=== PATIENT | male | born 1950 | race Two or more races ===

== ENCOUNTER 2023-08-16 13:25 | Emergency (ER) | payer MEDICARE, OTHER ==
[~2023-08-16] VITALS: Ht 167.6 cm; Wt 72.9 kg
[2023-08-16 14:36] LABS: Urine Bacteria NONE SEEN /hpf (None Seen); Urine Blood 3+ /uL (Negative); Urine Budding Yeast MODERATE /hpf (None Seen); Urine Clarity HAZY (Clear); Urine Color Yellow (Yellow); Urine Mucus FEW (None Seen); Urine Protein, UAD 1+ (Negative); Urine Specific Gravity 1.023 (1.001-1.035); Urine Urobilinogen Normal (Negative); Urine WBC 542 /hpf (0 - 3); Urine WBC Clumps PRESENT /hpf (None Seen)
[2023-08-16 18:30] VITALS: BP 141/58; PULSE 76; RESP 16; O2SAT 97
[2023-08-16 18:47] VITALS: TEMP 100.8
[2023-08-16] MEDS: ACETAMINOPHEN 325 MG TAB PO ONE (18:47)
[2023-08-16] MEDS ORDERED: BACDST PO (18:52)
== END 2023-08-16 19:07 | disposition home or self-care (01) ==
LOC: ER 13:25
DX: N39.0 Urinary tract infection, site not specified (principal); Z88.8 Allergy status to other drugs, medicaments and biological substances
CPT/HCPCS: 81001

== ENCOUNTER 2024-06-01 04:35 | Inpatient (IN) | payer OTHER ==
[~2024-06-01] VITALS: Ht 167.6 cm; Wt 68.2 kg
[~2024-06-01 04:35] MED LIST: BACDST PO
--- NOTE | 2024-06-01 05:03 | ED.PDOC ---
HPI Comments A 74 year old male presents to the ED with a chief complaint of high blood pressure onset today. Patient states he woke up about 2 hours ago experiencing headache, blurry vision, dizziness he took BP at home and it was 217/110. Upon ED arrival, BP was 193/79. Patient took Tylenol around 02:00 for headache and slightly improved pain. Past medical history of HTN, HLD. Denies chest pain, shortness of breath, nausea, vomiting, diarrhea, constipation. No other symptoms or modifying factors present at this time. Chief Complaint: High Blood Pressure Time Seen by MD: 04:48 Primary Care Provider: CHUCKIE Reviewed Notes: Medications, Allergies Allergies: Coded Allergies: Aspirin (Verified Allergy, Severe, 08/16/23) Ibuprofen (Verified Allergy, Severe, 08/16/23) Home Meds Active Scripts Pantoprazole Sodium Sesquihydr (Protonix) 40 Mg Tab, 40 MG PO DAILY for 30 Days, #30 TAB 0 Refills Prov:MARGARITO CARD MD 06/05/24 Lisinopril (Lisinopril) 10 Mg Tab, 10 MG PO DAILY for 30 Days, #30 TAB 2 Refills Prov:MARGARITO CARD MD 06/05/24 Chlorthalidone (Chlorthalidone) 25 Mg Tab, 25 MG PO DAILY@BREAKFAST for 30 Days, #30 TAB 2 Refills Prov:MARGARITO CARD MD 06/05/24 Amlodipine Besylate (NORVASC TABLET) 5 Mg Tb, 5 MG PO DAILY for 30 Days, #30 TAB 2 Refills Prov:MARGARITO CARD MD 06/05/24 Sulfamethoxazole W/Trimethopri (Bactrim Ds Tablet) 1 Tab Tb, 1 TAB PO BID for 10 Days, #20 TAB Prov:MAYNOR BAIRES PAC 08/16/23 Reported Medications Omeprazole (Omeprazole Dr) 20 Mg Cap, 1 CAP PO BID 06/01/24 Atorvastatin Calcium (ATORVASTATIN CALCIUM) 10 Mg Tab, 1 TAB PO 06/01/24 Information Source: Patient Mode of Arrival: Ambulatory Severity: Moderate Timing: Hours Duration: Since onset Prehospital treatment: None Cardiac Risk Factors: Hyperlipidemia, HTN Vital Signs Vital Signs Date Time Temp Pulse Resp B/P (MAP) Pulse Ox O2 Delivery O2 Flow Rate FiO2 06/01/24 08:40 127/66 06/01/24 08:31 48 14 97 06/01/24 07:38 Room Air* 0 21 06/01/24 07:32 98.3 98.3 Physical Exam General: Awake, alert and oriented. No acute distress. Skin: Skin in warm, dry and intact without rashes or lesions. HEENT: The head is normocephalic and atraumatic. Conjunctivae are clear without exudates or hemorrhage. Sclera is non-icteric. Neck: Normal range of motion. No JVD. Cardiac: Regular rate Respiratory: No signs of respiratory distress. No Stridor. Neurological: The patient is awake, alert and oriented to person, place, and time with normal speech. Speech is clear. There is no facial asymmetry. Psychiatric: Appropriate mood and affect. Good judgement and insight. No visual or auditory hallucinations. No suicidal or homicidal ideation. Past Medical History PAST MEDICAL HISTORY: High Lipids, HTN, Denies Surgical History: Denies all surgeries Family History Family History: Reviewed,noncontributory to illness Social History Smoker: Non-Smoker Alcohol: Denies ETOH Use Drugs: Denies Drug Use Lives In: Home Was a procedure done? Was a procedure done?: No CP Differential Dx Differential Diagnosis: A-fib, A-Flutter, Angina, Anxiety / Panic Attack, Atrial Dysrhythmia, Electrolyte Disorder X-Ray, Labs, Meds, VS Vital Signs Date Time Temp Pulse Resp B/P (MAP) Pulse Ox O2 Delivery O2 Flow Rate FiO2 06/01/24 08:40 127/66 06/01/24 08:31 48 14 127/66 (86) 97 06/01/24 07:38 47 Room Air* 0 21 06/01/24 07:36 159/69 06/01/24 07:32 98.3 47 16 159/69 (99) 96 98.3 06/01/24 06:35 Room Air* 0 21 06/01/24 06:29 97.5 50 16 150/49 (82) 97 97.5 06/01/24 04:58 47 06/01/24 04:45 97.6 50 16 197/67 (110) 98 Lab Test 06/01/24 05:15 Range/Units White Blood Count 14.0 H 4.4-10.8 10^3/uL Red Blood Count 5.13 4.5-5.90 10^6/uL Hemoglobin 15.5 13.5-17.5 g/dL Hematocrit 46.0 41.0-53.0 % Mean Corpuscular Volume 89.7 80.0-100.0 fL Mean Corpuscular Hemoglobin 30.2 28.0-32.0 pg Mean Corpuscular Hemoglobin Concent 33.7 32.0-36.0 g/dL Red Cell Distribution Width 14.8 H 11.8-14.3 % Platelet Count 312 140-450 10^3/uL Mean Platelet Volume 9.0 6.9-10.8 fL Neutrophils (%) (Auto) 80.8 H 37.0-80.0 % Lymphocytes (%) (Auto) 9.5 L 10.0-50.0 % Monocytes (%) (Auto) 9.3 0.0-12.0 % Eosinophils (%) (Auto) 0.2 0.0-7.0 % Basophils (%) (Auto) 0.2 0.0-2.0 % Neutrophils # (Auto) 11.3 H 1.6-8.6 10 ^3/uL Lymphocytes # (Auto) 1.3 0.4-5.4 10 ^3/uL Monocytes # (Auto) 1.3 0-1.3 10 ^3/uL Eosinophils # (Auto) 0 0-0.8 10 ^3/uL Basophils # (Auto) 0 0-0.2 10 ^3/uL Nucleated Red Blood Cells 0.0 % Sodium Level 137 136-145 mmol/L Potassium Level 3.7 3.5-5.1 mmol/L Chloride Level 103 98-107 mmol/L Carbon Dioxide Level 28 20-31 mmol/L Anion Gap 6 5-15 Blood Urea Nitrogen 21 9-23 mg/dL Creatinine 0.97 0.700-1.30 mg/dL Glomerular Filtration Rate Calc 81 >90 mL/min BUN/Creatinine Ratio 21.6 H 10.0-20.0 Serum Glucose 111 H 74-106 mg/dL Calcium Level 9.7 8.7-10.4 mg/dL Total Bilirubin 0.7 0.2-1.0 mg/dL Aspartate Amino Transferase (AST) 26 13-40 U/L Alanine Aminotransferase (ALT) 54 H 7-40 U/L Alkaline Phosphatase 90 46-116 U/L Troponin I High Sensitivity 24 </=54 ng/L B-Type Natriuretic Peptide 64.35 0-100 pg/mL Total Protein 6.7 5.7-8.2 g/dL Albumin 4.4 3.2-4.8 g/dL [address] [address] Ph: [phone] DIAGNOSTIC IMAGING Diagnostic Imaging Report : [id number] Signed PATIENT: J LUIS EVANGELISTA ACCT: [id number] UNIT: [id number] : 1950 LOC: ER ROOM / BED: / AGE / SEX: 74 / M ADM STATUS: REG ER SERVICE 6 ORDERING PHYSICIAN: IVETTE DEL TORO MD PROCEDURE(s): CXR1 - CHEST XRAY 1 VIEW REASON: cp ORDER NUMBER(s): [id number], ACCESSION NUMBER(s): [id number] CHEST RADIOGRAPH Indication: cp Technique: Single frontal view of the chest was obtained Comparison: None FINDINGS: Lines and Tubes: None Lungs: No focal consolidation. Pleura: No effusion. No pneumothorax. Cardiomediastinal contours: Unremarkable Bones: No acute osseous abnormality. IMPRESSION: 1. No acute cardiopulmonary disease. ATED BY: JARET ALONSO MD DICTATED DATE/TIME: 06/01/24524 SIGNED BY: JAERT ALONSO MD SIGNED DATE/TIME: 06/01/24524 CC: Time of 1ST Reevaluation: 05:18 Reevaluation 1ST: Unchanged Patient Education/Counseling: Diagnosis, Treatment, Prognosis Family Education/Counseling: No Family Present Departure 1 Departure Time of Disposition: 07:28 Impression: Primary Impression: Hypertensive urgency Additional Impression: TIA (transient ischemic attack) Disposition: ADMITTED INPATIENT Admit to: Med Surg Condition: Guarded e-Prescriptions Pantoprazole Sodium Sesquihydr (Protonix) 40 Mg Tab 40 MG PO DAILY for 30 Days, #30 TAB 0 Refills Prov: MARGARITO CARD MD 06/05/24 Lisinopril (Lisinopril) 10 Mg Tab 10 MG PO DAILY for 30 Days, #30 TAB 2 Refills Prov: MARGARITO CARD MD 06/05/24 Chlorthalidone (Chlorthalidone) 25 Mg Tab 25 MG PO DAILY@BREAKFAST for 30 Days, #30 TAB 2 Refills Prov: MARGARITO CARD MD 06/05/24 Amlodipine Besylate (NORVASC TABLET) 5 Mg Tb 5 MG PO DAILY for 30 Days, #30 TAB 2 Refills Prov: MARGARITO CARD MD 06/05/24 Comments MRI Critical Care Note Critical Care Time?: No Stability Stability form required: No Heart Score Heart Score: Heart Score Response (Comments) Value History Slightly Suspicious 0 EKG Normal 0 Age >65 2 Risk Factors >3 or Hx ASHD 2 Troponin Normal limit 0 Total 4 I personally scribed for IVETTE DEL TORO MD ([email or web address]) on 06/01/24 at 05:03. Electronically submitted by Sasha Starks ([email or web address]). I personally scribed for IVETTE DEL TORO MD ([email or web address]) on 06/01/24 at 05:49. Electronically submitted by Sasha Starks ([email or web address]). IVETTE DEL TORO MD Jun 01, 2024 05:03 CHINMAY BOONE MD Jun 01, 2024 07:28
--- NOTE | 2024-06-01 05:28 | DVH ---
CHEST RADIOGRAPH Indication: cp Technique: Single frontal view of the chest was obtained Comparison: None FINDINGS: Lines and Tubes: None Lungs: No focal consolidation. Pleura: No effusion. No pneumothorax. Cardiomediastinal contours: Unremarkable Bones: No acute osseous abnormality. IMPRESSION: 1. No acute cardiopulmonary disease.
[2024-06-01 05:50] LABS: Basophils # (auto) 0 10 ^3/uL (0-0.2); Basophils % (auto) 0.2 % (0.0-2.0); Eosinophils # (auto) 0 10 ^3/uL (0-0.8); Eosinophils % (auto) 0.2 % (0.0-7.0); Hemoglobin 15.5 g/dL (13.5-17.5); Lymphocytes # (auto) 1.3 10 ^3/uL (0.4-5.4); Lymphocytes % (auto) 9.5 % (10.0-50.0); Mean Corpuscular Hemoglobin 30.2 pg (28.0-32.0); Mean Corpuscular Hgb Conc. 33.7 g/dL (32.0-36.0); Mean Corpuscular Volume 89.7 fL (80.0-100.0); Monocytes # (auto) 1.3 10 ^3/uL (0-1.3); Monocytes % (auto) 9.3 % (0.0-12.0); Neutrophils # (auto) 11.3 10 ^3/uL (1.6-8.6); Neutrophils % (auto) 80.8 % (37.0-80.0); Platelet Count (auto) 312 10^3/uL (140-450); Red Blood Cells 5.13 10^6/uL (4.5-5.90); Red Cell Distribution Width 14.8 % (11.8-14.3)
[2024-06-01 05:55] LABS: Albumin 4.4 g/dL (3.2-4.8); Alkaline Phosphatase 90 U/L (46-116); Anion Gap 6 (5-15); Aspartate Aminotransferase 26 U/L (13-40); BUN/Creatinine Ratio 21.6 (10.0-20.0); Bilirubin, Total 0.7 mg/dL (0.2-1.0); Blood Urea Nitrogen 21 mg/dL (9-23); Calcium 9.7 mg/dL (8.7-10.4); Carbon Dioxide 28 mmol/L (20-31); Chloride 103 mmol/L (98-107); Potassium 3.7 mmol/L (3.5-5.1); Sodium 137 mmol/L (136-145); Total Protein 6.7 g/dL (5.7-8.2)
[2024-06-01 06:12] LABS: Alanine Aminotransferase 54 U/L (7-40); Glucose 111 mg/dL (74-106)
--- NOTE | 2024-06-01 06:40 | ECG ---
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
[2024-06-01] MEDS: cloNIDine HCL 0.1 MG TAB PO ONE (07:36)
[2024-06-01 07:38] VITALS: PULSE 47
--- NOTE | 2024-06-01 09:52 | DVHHP2 ---
History of Present Illness Reason for Visit: High blood pressure History of Present Illness Kamilah Maloney is a 74-year-old male with history of hypertension and hyperlipidemia who presents to the ED today with high blood pressure x 1 day. Patient complains of headache and neck pain, also stated his BP was 217/110 at home. Patient denies chest pain, shortness of breath, wheezing, fever, chills, dizziness, lightheadedness, nausea, vomiting, diarrhea, and abdominal pain. Cardiovascular: HTN, hyperipidemia Past Surgical History: None Family History: None Smoke: No ALCOHOL: none Drugs: None Lives: Alone Domestic Violence: Neg Review of Systems Constitutional: Yes: Other (Headache); No: Fever, Chills, Sweats, Weakness, Malaise Eyes: No: Pain, Vision change, Conjunctivae inflammation, Eyelid inflammation, Other, Redness ENT: No: Ear pain, Ear discharge, Nose pain, Nose discharge, Nose congestion, Mouth pain, Mouth swelling, Throat pain, Throat swelling, Other Respiratory: No: Cough, Dry, Shortness of breath, SOB with excertion, Wheezing, Hemoptysis, Pleuritic Pain, Sputum, Wheezing, Other Cardiovascular: No: Chest Pain, Palpitations, Orthopnea, Paroxysmal Noc. Dyspnea, Edema, Lt Headedness, Other Gastrointestinal: No: Nausea, Vomiting, Abdominal Pain, Diarrhea, Constipation, Melena, Hematochezia, Other Genitourinary: No Dysuria, No Frequency, No Incontinence, No Hematuria, No Retention, No Other Musculoskeletal: neck pain; No: other, shoulder pain, arm pain, back pain, hand pain, leg pain, foot pain Skin: No: Rash, Lesions, Jaundice, Bruising, Other Neurological: No: Weakness, Numbness, Incoordination, Change in speech, Confusion, Seizures, Other Allergies: Coded Allergies: Aspirin (Verified Allergy, Severe, 08/16/23) Ibuprofen (Verified Allergy, Severe, 08/16/23) Exam Vital Signs Vital Signs Date Time Temp Pulse Resp B/P (MAP) Pulse Ox O2 Delivery O2 Flow Rate FiO2 06/01/24 08:40 127/66 06/01/24 08:31 48 14 97 06/01/24 07:38 Room Air* 0 21 06/01/24 07:32 98.3 98.3 General Appearance: Alert, Oriented X3, Cooperative, No acute distress HEENT: Atraumatic, PERRLA, EOMI, Mucous membr. moist/pink Respiratory: Clear to auscultation, Normal air movement Cardiovascular: Normal S1, Normal S2, No murmurs Abdominal: Normal bowel sounds, Soft, No tenderness, No hepatospenomegaly, No masses Extremities: No clubbing, No cyanosis, No edema, Normal pulses, No tenderness/swelling Skin: No rashes, No breakdown, No significant lesion Neuro: Normal gait, Normal speech, Strength at 5/5 X4 ext, Normal tone, Sensation intact Psych/Mental Status: Mental status NL, Mood NL Labs/Xrays Labs Test 06/01/24 05:15 Range/Units White Blood Count 14.0 H 4.4-10.8 10^3/uL Red Blood Count 5.13 4.5-5.90 10^6/uL Hemoglobin 15.5 13.5-17.5 g/dL Hematocrit 46.0 41.0-53.0 % Mean Corpuscular Volume 89.7 80.0-100.0 fL Mean Corpuscular Hemoglobin 30.2 28.0-32.0 pg Mean Corpuscular Hemoglobin Concent 33.7 32.0-36.0 g/dL Red Cell Distribution Width 14.8 H 11.8-14.3 % Platelet Count 312 140-450 10^3/uL Mean Platelet Volume 9.0 6.9-10.8 fL Neutrophils (%) (Auto) 80.8 H 37.0-80.0 % Lymphocytes (%) (Auto) 9.5 L 10.0-50.0 % Monocytes (%) (Auto) 9.3 0.0-12.0 % Eosinophils (%) (Auto) 0.2 0.0-7.0 % Basophils (%) (Auto) 0.2 0.0-2.0 % Neutrophils # (Auto) 11.3 H 1.6-8.6 10 ^3/uL Lymphocytes # (Auto) 1.3 0.4-5.4 10 ^3/uL Monocytes # (Auto) 1.3 0-1.3 10 ^3/uL Eosinophils # (Auto) 0 0-0.8 10 ^3/uL Basophils # (Auto) 0 0-0.2 10 ^3/uL Nucleated Red Blood Cells 0.0 % Sodium Level 137 136-145 mmol/L Potassium Level 3.7 3.5-5.1 mmol/L Chloride Level 103 98-107 mmol/L Carbon Dioxide Level 28 20-31 mmol/L Anion Gap 6 5-15 Blood Urea Nitrogen 21 9-23 mg/dL Creatinine 0.97 0.700-1.30 mg/dL Glomerular Filtration Rate Calc 81 >90 mL/min BUN/Creatinine Ratio 21.6 H 10.0-20.0 Serum Glucose 111 H 74-106 mg/dL Calcium Level 9.7 8.7-10.4 mg/dL Total Bilirubin 0.7 0.2-1.0 mg/dL Aspartate Amino Transferase (AST) 26 13-40 U/L Alanine Aminotransferase (ALT) 54 H 7-40 U/L Alkaline Phosphatase 90 46-116 U/L Troponin I High Sensitivity 24 </=54 ng/L B-Type Natriuretic Peptide 64.35 0-100 pg/mL Total Protein 6.7 5.7-8.2 g/dL Albumin 4.4 3.2-4.8 g/dL CHEST RADIOGRAPH Indication: cp Technique: Single frontal view of the chest was obtained Comparison: None FINDINGS: Lines and Tubes: None Lungs: No focal consolidation. Pleura: No effusion. No pneumothorax. Cardiomediastinal contours: Unremarkable Bones: No acute osseous abnormality. IMPRESSION: 1. No acute cardiopulmonary disease. Assessment/Plan Assessment/Plan Assessment: Hypertensive urgency Sinus Bradycardia History of hypertension Hyperlipidemia Plan: Admit to telemetry Antihypertensives Chest x-ray noted Cardiology consult Diet as tolerated Pain management IV antibiotics Antiemetics Monitor labs UA Home medications reconciled Plan discussed with: Patient Date of Service: Jun 01, 2024 Billing Provider: SMITH DURAN Common Visit Codes: [id number] INP/OBS CARE (MOD) SMITH DURAN Jun 01, 2024 09:52
[2024-06-01] MEDS ORDERED: MORPHINE SULFATE INJ 2 MG/ml SYRG IV PRN (10:45)
[2024-06-01] MEDS ORDERED: DOCUSATE SOD 100 MG CAP PO PRN (10:45)
[2024-06-01] MEDS ORDERED: ACETAMINOPHEN 325 MG TAB PO PRN (10:45)
[2024-06-01] MEDS ORDERED: ONDANSETRON HCL 4 MG/2 ML VIAL IV PRN (10:45)
[2024-06-01] MEDS ORDERED: LISI-275 PO (10:52)
[2024-06-01] MEDS ORDERED: OMEP1CAP70 PO (10:52)
[2024-06-01] MEDS ORDERED: ATOR10TA52 PO (10:52)
[2024-06-01] MEDS: cefTRIAXone 1GM/50ML D5W 50 ML IV ONE (11:18)
--- NOTE | 2024-06-01 14:19 | DVHINCON2 ---
Date Seen: Jun 01, 2024 Referring Physician MERCEDES Moore Reason for Consultation Sinus bradycardia History of Present Illness This is a 74-year-old Danish-speaking male who presents to the emergency room with chief complaint of headache and blurry vision. The patient reports that he was checking his blood pressure at home last night after a sudden onset of headache and blurry vision. He reports that his blood pressure at home was reading in the systolic 200s. The patient reports he was unable to get his blood pressure under control so he decided to come to the emergency room for further evaluation. Upon emergency room arrival, the patient's blood pressure was noted to reach as high as 197/67. Initial twelve lead electrocardiogram reveals sinus bradycardia without any significant ST segment changes or AV blocks. Patient denies any cardiac symptoms such as chest pain, palpitations, shortness or breath, or other cardiac symptoms. Significant past medical history includes hypertension, hyperlipidemia, BPH, and GERD. The patient reports he is very active at home. He reports seeing a director of leadership development in the past for sinus bradycardia and was told that his heart rate is likely always low due to his vigorous activity level. He reports medical compliance to his lisinopril. Past Medical History Past medical history reviewed. No other significant than mentioned above. Past Surgical History Cholecystectomy Family History Family history reviewed. Social History Denies the use of tobacco, alcohol or illicit drugs. Allergies: Coded Allergies: Aspirin (Verified Allergy, Severe, 08/16/23) Ibuprofen (Verified Allergy, Severe, 08/16/23) Home Meds Active Scripts Sulfamethoxazole W/Trimethopri (Bactrim Ds Tablet) 1 Tab Tb, 1 TAB PO BID for 10 Days, #20 TAB Prov:MAYNOR BAIRES PAC 08/16/23 Reported Medications Omeprazole (Omeprazole Dr) 20 Mg Cap, 1 CAP PO BID 06/01/24 Lisinopril (Lisinopril) 5 Mg Tab, 1 TAB PO DAILY 06/01/24 Atorvastatin Calcium (ATORVASTATIN CALCIUM) 10 Mg Tab, 1 TAB PO 06/01/24 Home Meds Home medications reviewed. Current Medications Current Medications Medications (Trade) Dose Ordered Sig/Frank Route PRN Reason Start Time Stop Time Status Last Admin Hydralazine HCl (Apresoline Tablet) 10 mg Q6HP PRN PO SBP>150 06/01/24 10:45 Lorazepam (Ativan Tablet) 0.5 mg Q6HP PRN PO ANXIETY 06/01/24 10:45 Docusate Sodium (Colace Capsule) 100 mg BIDPRN PRN PO FOR CONSTIPATION 06/01/24 10:45 Acetaminophen (Tylenol Tablet) 650 mg Q6HP PRN PO PAIN SCALE 1-3 OR TEMP>100.4 06/01/24 10:45 Acetaminophen/ Hydrocodone Bitart (Snyder 5/325MG Tab) 1 tab Q4HP PRN PO MODERATE PAIN (4-6 PAIN SCALE) 06/01/24 10:45 Ondansetron HCl (Zofran) 4 mg Q4HP PRN IV NAUSEA / VOMITING 06/01/24 10:45 Morphine Sulfate 2 mg Q4HPRN PRN IV SEVERE PAIN (7-10 PAIN SCALE) 06/01/24 10:45 Ceftriaxone Sodium 50 ml @ 100 mls/hr DAILY@09 IV 06/02/24 09:00 Review of Systems Constitutional: No symptom reported Ears, Nose, & Throat: No symptom reported Eyes: No symptom reported Neurological: Headache, blurry vision Pulmonary/Respiratory: No symptoms reported Cardiovascular: No symptom reported Gastrointestinal: No symptom reported Genitourinary: No symptom reported Musculoskeletal: No symptom reported Skin: No symptom reported Psychiatric: No symptom reported Endocrine: No symptom reported Hematologic/Lymphatic: No symptom reported Vital Signs Vital Signs Date Time Temp Pulse Resp B/P (MAP) Pulse Ox O2 Delivery O2 Flow Rate FiO2 06/01/24 08:40 127/66 06/01/24 08:31 48 14 97 06/01/24 07:38 Room Air* 0 21 06/01/24 07:32 98.3 98.3 Physical Exam General Appearance: Cooperative. Well-developed. Well-nourished. No acute distress. Pulmonary/Respiratory: Clear, bilateral breaths sounds. Cardiovascular/Chest: Regular rate and rhythm. Peripheral Pulses: 2+ Radial (R). 2+ Radial (L). 2+ Pedal (R). 2+ Pedal (L) Abdominal Exam: Normal bowel sounds. Ankle Exam: Negative ankle edema Lower extremities: Negative lower extremity edema Neuro/Mental Status: A/OX4, coherent. Thoughts/Psych: Normal thought pattern. Appropriate mood and affect. Good judgment and insight. Appearance: No acute distress. Skin Exam: Normal inspection. Normal color. Warm and dry. Labs/Diagnostic Data Labs Test 06/01/24 05:15 Range/Units White Blood Count 14.0 H 4.4-10.8 10^3/uL Red Blood Count 5.13 4.5-5.90 10^6/uL Hemoglobin 15.5 13.5-17.5 g/dL Hematocrit 46.0 41.0-53.0 % Mean Corpuscular Volume 89.7 80.0-100.0 fL Mean Corpuscular Hemoglobin 30.2 28.0-32.0 pg Mean Corpuscular Hemoglobin Concent 33.7 32.0-36.0 g/dL Red Cell Distribution Width 14.8 H 11.8-14.3 % Platelet Count 312 140-450 10^3/uL Mean Platelet Volume 9.0 6.9-10.8 fL Neutrophils (%) (Auto) 80.8 H 37.0-80.0 % Lymphocytes (%) (Auto) 9.5 L 10.0-50.0 % Monocytes (%) (Auto) 9.3 0.0-12.0 % Eosinophils (%) (Auto) 0.2 0.0-7.0 % Basophils (%) (Auto) 0.2 0.0-2.0 % Neutrophils # (Auto) 11.3 H 1.6-8.6 10 ^3/uL Lymphocytes # (Auto) 1.3 0.4-5.4 10 ^3/uL Monocytes # (Auto) 1.3 0-1.3 10 ^3/uL Eosinophils # (Auto) 0 0-0.8 10 ^3/uL Basophils # (Auto) 0 0-0.2 10 ^3/uL Nucleated Red Blood Cells 0.0 % Sodium Level 137 136-145 mmol/L Potassium Level 3.7 3.5-5.1 mmol/L Chloride Level 103 98-107 mmol/L Carbon Dioxide Level 28 20-31 mmol/L Anion Gap 6 5-15 Blood Urea Nitrogen 21 9-23 mg/dL Creatinine 0.97 0.700-1.30 mg/dL Glomerular Filtration Rate Calc 81 >90 mL/min BUN/Creatinine Ratio 21.6 H 10.0-20.0 Serum Glucose 111 H 74-106 mg/dL Calcium Level 9.7 8.7-10.4 mg/dL Total Bilirubin 0.7 0.2-1.0 mg/dL Aspartate Amino Transferase (AST) 26 13-40 U/L Alanine Aminotransferase (ALT) 54 H 7-40 U/L Alkaline Phosphatase 90 46-116 U/L Troponin I High Sensitivity 24 </=54 ng/L B-Type Natriuretic Peptide 64.35 0-100 pg/mL Total Protein 6.7 5.7-8.2 g/dL Albumin 4.4 3.2-4.8 g/dL Assessment Sinus bradycardia without AV block Hypertensive urgency, resolved Rule out structural heart disease Hyperlipidemia BPH Plan/Recommendation We will continue with the following plan/recommendations (): At this time we will proceed with obtaining a transthoracic echocardiogram to evaluate cardiac function. At the time of assessment, the patient is not c onnected to monitor technician as he is in the ER holding area. We will recommend cardiac surveillance to monitor for any ECG changes including AV blocks or pauses. Avoid AV shaniqua blocking agents. Aggressive BP control. We will obtain a renal ultrasound to rule out renal artery stenosis. Thank you for allowing us to care for this patient. Please call with any questions or concerns. Critical care time spent: 40 minutes This medical document was created using an electronic medical record system with voice recognition software and computerized dictation system. Although this document has been carefully reviewed, there might still be some phonetic and typographical errors. Occasional wrong-word or ``sound-alike substitutions may have occurred due to the inherent limitations of voice recognition software. These areas are purely typographical due to imperfections of the software programs and do not reflect any compromise in the patient's medical care. Please read the chart carefully and recognize, using context, where these substitutions have occurred. Plan discussed with: Patient Date of Service: Jun 01, 2024 Billing Provider: SALLIE JEREZ MD Cardiology Common Codes: [id number] INP/OBS CARE (High) Cardiology Consultation Codes: [id number] CONSULT <45MIN LEONARD ARORA Jun 01, 2024 14:19
[2024-06-01 20:00] VITALS: PULSE 40; PULSE 45; RESP 17
[2024-06-01 21:00] VITALS: BP 174/77; PULSE 47; RESP 17; TEMP 97.8; O2SAT 93
[2024-06-01] MEDS: HYDROcodone-ACET 5/325MG TAB PO PRN (21:04)
[2024-06-01] MEDS: LORazepam 0.5 MG TAB PO PRN (21:04)
[2024-06-01] MEDS: hydrALAZINE HCL 10 MG TAB PO PRN (21:04)
[2024-06-02] VITALS (8 sets, daily range): BP systolic 117–153; BP diastolic 52–97; PULSE 43–63; RESP 16–18; TEMP 97.2–98.2; O2SAT 93–95
[2024-06-02] MEDS: hydrALAZINE HCL 20 MG/ML VL IV PRN (05:07)
[2024-06-02 06:19] LABS: Basophils # (auto) 0 10 ^3/uL (0-0.2); Eosinophils # (auto) 0.1 10 ^3/uL (0-0.8); Eosinophils % (auto) 0.7 % (0.0-7.0); Hematocrit 44.2 % (41.0-53.0); Hemoglobin 15.2 g/dL (13.5-17.5); Lymphocytes # (auto) 1.5 10 ^3/uL (0.4-5.4); Lymphocytes % (auto) 15.7 % (10.0-50.0); Mean Corpuscular Hemoglobin 30.6 pg (28.0-32.0); Mean Corpuscular Hgb Conc. 34.3 g/dL (32.0-36.0); Mean Corpuscular Volume 89.1 fL (80.0-100.0); Monocytes # (auto) 0.9 10 ^3/uL (0-1.3); Monocytes % (auto) 9.3 % (0.0-12.0); Neutrophils % (auto) 74.3 % (37.0-80.0); Nucleated Red Blood Cells % 0.2 %; Platelet Count (auto) 260 10^3/uL (140-450); Red Blood Cells 4.96 10^6/uL (4.5-5.90); Red Cell Distribution Width 14.8 % (11.8-14.3); White Blood Cell 9.5 10^3/uL (4.4-10.8)
[2024-06-02 06:29] LABS: Anion Gap 7 (5-15); Carbon Dioxide 26 mmol/L (20-31); Chloride 107 mmol/L (98-107); Potassium 4.3 mmol/L (3.5-5.1); Sodium 140 mmol/L (136-145)
[2024-06-02 06:31] LABS: Calcium 9.2 mg/dL (8.7-10.4)
[2024-06-02 06:35] LABS: Glucose 87 mg/dL (74-106); Triglycerides 123 mg/dL (< 150)
[2024-06-02 06:36] LABS: BUN/Creatinine Ratio 26.4 (10.0-20.0); Blood Urea Nitrogen 23 mg/dL (9-23); Magnesium 2.4 mg/dL (1.6-2.6)
[2024-06-02 06:37] LABS: Cholesterol 191 mg/dL (< 200); HDL Cholesterol 48 mg/dL (40-59)
[2024-06-02 06:41] LABS: LDL Cholesterol 114 mg/dL (< 100)
[2024-06-02] MEDS: cefTRIAXone 1GM/50ML D5W 50 ML IV SCH (09:21)
[2024-06-02] MEDS: LISINOPRIL 5 MG TAB PO SCH (09:22)
[2024-06-02] MEDS ORDERED: hydrALAZINE HCL 10 MG TAB PO PRN (13:30)
--- NOTE | 2024-06-02 13:30 | DVHPN2 ---
Consult Progress Note Date Seen: Jun 02, 2024 Subjective Review of Systems: CVS:Normal, RESPIRATORY:Normal, NEURO:Normal Objective vital signs Vital Sign Date Time Temp Pulse Resp B/P (MAP) Pulse Ox O2 Delivery O2 Flow Rate FiO2 06/02/24 11:54 97.5 53 17 145/52 (83) 94 97.5 06/02/24 08:00 Room Air* 0 21 Total Intake and Output 06/01/24 06/01/24 06/02/24 15:00 23:00 07:00 Intake Total 250 ml Output Total 400 ml Balance 250 ml -400 ml medications Current Medications Medications Dose Ordered Sig/Frank Route Start Time Stop Time Status Last Admin Dose Admin Hydralazine HCl 10 mg Q6HP PRN PO 06/01/24 10:45 06/01/24 21:04 10 MG Lorazepam 0.5 mg Q6HP PRN PO 06/01/24 10:45 06/01/24 21:04 0.5 MG Docusate Sodium 100 mg BIDPRN PRN PO 06/01/24 10:45 Acetaminophen 650 mg Q6HP PRN PO 06/01/24 10:45 Acetaminophen/ Hydrocodone Bitart 1 tab Q4HP PRN PO 06/01/24 10:45 06/01/24 21:04 1 TAB Ondansetron HCl 4 mg Q4HP PRN IV 06/01/24 10:45 Morphine Sulfate 2 mg Q4HPRN PRN IV 06/01/24 10:45 Ceftriaxone Sodium 50 ml @ 100 mls/hr DAILY@09 IV 06/02/24 09:00 06/02/24 09:21 100 MLS/HR Lisinopril 10 mg DAILY PO 06/02/24 10:00 06/02/24 09:22 10 MG Hydralazine HCl 10 mg Q6HP PRN IV 06/02/24 02:00 06/02/24 05:07 10 MG Examination: LUNGS:Normal, CVS:Normal, NEURO:Normal laboratory and microbiology Laboratory Tests 06/02/24 05:27 Test 06/02/24 05:27 Range/Units Serum Glucose 87 74-106 mg/dL Problem List/Assessment/Plan Problem List/Assessment/Plan Sinus bradycardia without AV blocks Rule out symptomatic bradycardia Hypertensive urgency, resolved Rule out structural heart disease Pre-diabetes, newly diagnosed Hyperlipidemia BPH Plan/Recommendation () Continue with a transthoracic echocardiogram to evaluate cardiac function. We will recommend cardiac surveillance to monitor for any ECG changes including AV blocks or pauses. Avoid AV shaniqua blocking agents. Consider an outpatient event monitor to rule out symptomatic bradycardia. The patient reports symptoms have dissipated now that his blood pressure is well controlled. Continue aggressive BP control with ACEI and chlorthalidone, up-titrate as necessary. In the setting of an unremarkable renal artery duplex and transthoracic echocardiogram, there is no further cardiac work-up indicated at this time. Kindly call if in need to re-consult. Thank you for allowing us to care for this patient. Please call with any questions or concerns. This medical document was created using an electronic medical record system with voice recognition software and computerized dictation system. Although this document has been carefully reviewed, there might still be some phonetic and typographical errors. Occasional wrong-word or ``sound-alike substitutions may have occurred due to the inherent limitations of voice recognition software. These areas are purely typographical due to imperfections of the software programs and do not reflect any compromise in the patient's medical care. Please read the chart carefully and recognize, using context, where these substitutions have occurred. Plan discussed with: Patient, Other Date of Service: Jun 02, 2024 Billing Provider: SALLIE JEREZ MD Cardiology Common Codes: [id number] INP/OBS CARE([facility]) HORTENSIA HENDERSON [facility] Jun 02, 2024 13:30
[2024-06-02] MEDS: CHLORTHALIDONE 25 MG TAB PO ONE (15:01)
--- NOTE | 2024-06-02 16:14 | DVHSR ---
APPROVED REPORT EXAM: Two-dimensional and M-mode echocardiogram with Doppler and color Doppler. Blood Pressure: 153/97 mmHg INDICATION Evaluate cardiac function RISK FACTORS Height: 5'6", Weight: 131 DIMENSIONS LVDd4.5 (3.8-5.7cm)LA (2D)4.3 (1.9-4.0cm)Aortic Root3.7 (2.0-3.7cm) LVDs2.7 (2.5-4.0cm)LA (MM) (1.9-4.0cm)Aortic Cusp Exc1.1 (1.5-2.0cm) EF (%) 69.0 (55-70%)Rt. Atrium4.0 (1.9-4.0cm)Asc. Aorta4.2 cm IVSd1.3 (0.7-1.1cm)RV (D)3.9 (1.8-2.4cm) PWd0.9 (0.7-1.1cm) Mitral Valve MitralMitral Stenosis E wave0.51m/sMV Mean GR.mmHg A wave0.92m/sMV Peak GR.mmHg E/A ratio0.62D MVAcm2 DECEL [id number] 1/2 Timems Aortic Valve Aortic ValveAortic Stenosis V11.07m/Shana Mean GR.6mmHg V21.78m/Shana Peak GR.13mmHg LVOT Diameter1.8 (1.8-2.4cm)Doppler AVA1.53cm2 AI P 1/2 Awld884.98ms Pulmonic Valve V21.01m/s Tricuspid Valve TR Velocity2.18m/s [id number] Conclusion Normal left ventricular size and dimension. Normal left ventricular systolic function estimated ejec tion fraction 55%. There is a grade 1 diastolic dysfunction Normal right ventricular size and dimension. Normal right ventricular systolic function. Normal biatrial size and dimension. Mild aortic valve thickening and sclerosis. There is mild aortic valve regurgitation. Normal mitral valve structure and function. Normal tricuspid valve structure and function. The pulmonary valve is grossly normal. No pericardial effusion.
--- NOTE | 2024-06-02 17:48 | DVH ---
EXAM: US RENAL ARTERY COMP HISTORY: Hypertension. COMPARISON: None TECHNIQUE: Realtime grayscale and Doppler ultrasound images of the aorta renal arteries with spectra l waveform analysis were obtained. FINDINGS: AORTA: 1.7 cm in AP and 1.7 cm in transverse. Peak systolic velocity of 82.3 centimeter/second at the level renal arteries. RIGHT: The right kidney measures 11.6 cm in length. No renal cortical thinning or hydronephrosis. Jonathon al artery peak systolic velocity of 157 centimeter/second ( normal less than 180 centimeter/second) a nd end-diastolic velocity of 53 centimeter/second ( normal less than 35 centimeter/second). The resis tive index is 0.66 ( normal less than 0.75) renal PSV/ aorta PSV ratio is 1.9 (normal < 3.5). LEFT: The right kidney measures 11.4 cm in length. No renal cortical thinning or hydronephrosis. Angela l artery peak systolic velocity of 98 centimeter/second ( normal less than 180 centimeter/second) and end-diastolic velocity of 25 centimeter/second ( normal less than 35 centimeter/second). The resisti ve index is 0.74 ( normal less than 0.75) renal PSV/ aorta PSV ratio is 1.2 (normal < 3.5). IMPRESSION: 1. No evidence of renal artery stenosis bilaterally.
--- NOTE | 2024-06-02 18:39 | DVHPN2 ---
Subjective 74-year-old male w PMHx hypertension, hyperlipidemia, BPH, and GERD who presents to the emergency room with chief complaint of headache. The patient reports that he was checking his blood pressure at home last night after a sudden onset of headache. He reports that his blood pressure at home was reading in the systolic 200s. The patient reports he was unable to get his blood pressure under control so he decided to come to the emergency room for further evaluation. Upon emergency room arrival, the patient's blood pressure was noted to reach as high as 197/67. denies changes in vsion, blurry vision, CP, abd pain, dizziness, falls. no SOB palpitaitons. He works out EOD if not daily. he has been healthy his whole life, has regular PCP but has never had this high BP in clinic visits. The patient reports he is very active at home. He reports seeing a dress finisher in the past for sinus bradycardia and was told that his heart rate is likely always low due to his vigorous activity level. He reports medical compliance to his lisinopril. denies etoh, drug, smoking. Reviewed: H&P Changes from previous H/P or p: No Changes General: Per HPI Objective Vitals Vital Signs Date Time Temp Pulse Resp B/P (MAP) Pulse Ox O2 Delivery O2 Flow Rate FiO2 06/02/24 17:00 98.1 51 16 143/59 (87) 93 98.1 06/02/24 08:00 Room Air* 0 21 Intake/Output Intake and Output 06/02/24 07:00 Intake Total 250 ml Output Total 400 ml Balance -150 ml Intake Oral 250 ml Output Urine Total 400 ml # Voids 1 Exam GEN: Healthy appearing, well-developed, NAD. HEENT: NC/AT; MMM. CV: RRR, no m/r/g. LUNGS: CTAB, no w/r/c. ABD: Mild tenderness to epigastrium on palpation EXT: skin Warm, well perfused. no rashes. No clubbing, cyanosis, or edema. NEURO: Ambulating with no limitations. No focal deficits. Medications Current Medications Medications Dose Ordered Sig/Frank Route Start Time Stop Time Status Last Admin Dose Admin Lorazepam 0.5 mg Q6HP PRN PO 06/01/24 10:45 06/01/24 21:04 0.5 MG Docusate Sodium 100 mg BIDPRN PRN PO 06/01/24 10:45 Acetaminophen 650 mg Q6HP PRN PO 06/01/24 10:45 Acetaminophen/ Hydrocodone Bitart 1 tab Q4HP PRN PO 06/01/24 10:45 06/01/24 21:04 1 TAB Ondansetron HCl 4 mg Q4HP PRN IV 06/01/24 10:45 Morphine Sulfate 2 mg Q4HPRN PRN IV 06/01/24 10:45 Lisinopril 10 mg DAILY PO 06/02/24 10:00 06/02/24 09:22 10 MG Chlorthalidone 25 mg DAILY@BREAKFAST PO 06/03/24 08:00 Hydralazine HCl 10 mg Q6HP PRN PO 06/02/24 13:30 Laboratory Results Laboratory Tests 06/02/24 05:27 Chemistry Test 06/02/24 05:27 Calcium Level 9.2 mg/dL (8.7-10.4) Magnesium Level 2.4 mg/dL (1.6-2.6) Lipid panel Test 06/02/24 05:27 Cholesterol Level 191 mg/dL (< 200) HDL Cholesterol 48 mg/dL (40-59) Triglycerides Level 123 mg/dL (< 150) HgA1c, TSH Test 06/02/24 05:27 Hemoglobin A1c 5.8 % A1C (<5.7) H Thyroid Stimulating Hormone (TSH) 3.51 uIU/mL (0.55-4.78) Labs and/or images reviewed: Labs reviewed by me, Image(s) reviewed by me Assessment/Plan Assessment/Plan Update - 06/02 patient remains asymptomatic, on tele patient is sinus bradycardia in 50s. This appears to be not affecting his symptoms. He no longer has any headaches. Blood pressure appears to be controlled. Cardiology recommending close monitoring of bradycardia. He also needs blood pressure monitoring for another overnight stay. We will likely be safe for dc tomorrow if no further blood pressure elevations occur. Hypertensive urgency Headache -on admit blood pressures in 200s over 100s at least, per noted vital signs were 97/67 - no end-organ damage creatinine at baseline BNP within normal limits troponins negative.- -started on chlorthalidone and lisinopril 10, blood pressure tolerating well. We will monitor 1 more night to ensure no further elevations Leukocytosis Neutrophilia On admit WBC 14, neutrophil percentage 80%, neutropenic count 11.3 all high --no sources of infection, likely from hemoconcentration. Avoid antibiotics for now Prediabetes -Patient consult for dietary control. Defer starting of Glucophage to PCP GERD PUD -we will trial Protonix 40 p.o. daily for 1 month inpatient and follow up with PCP Sinus bradycardia, asymptomatic -patient heart rate in 40s to 50s, asymptomatic -Echo 06/02 is normal with EF 55% -card consult rec: We will recommend cardiac surveillance to monitor for any ECG changes including AV blocks or pauses. Avoid AV shaniqua blocking agents. Aggressive BP control. We will obtain a renal ultrasound to rule out renal artery stenosis. -we will monitor for bradycardia and symptoms for 1 more night Hyperlipidemia-continue Lipitor BPH - continue Flomax and finasteride Carb consistent diet DVT prophylaxis-ambulating GI prophylaxis tolerating diet Med tele Plan discussed with: Patient My Orders Orders - MARGARITO CARD MD Procedure Category Date Status Time Hydralazine Hcl PHA 06/02/24 In Process Tablet (Apresoline 13:30 Date of Service: Jun 02, 2024 Billing Provider: MARGARITO CARD MD Common Visit Codes: [id number] INP/OBS CARE(HIGH) MARGARITO CARD MD Jun 02, 2024 18:39
[2024-06-03] VITALS (9 sets, daily range): BP systolic 114–172; BP diastolic 64–81; PULSE 42–66; RESP 17–21; TEMP 97.5–98.1; O2SAT 92–96
[2024-06-03 06:33] LABS: Alanine Aminotransferase 38 U/L (7-40); Albumin 3.7 g/dL (3.2-4.8); Alkaline Phosphatase 73 U/L (46-116); Anion Gap 8 (5-15); BUN/Creatinine Ratio 25.5 (10.0-20.0); Calcium 9.5 mg/dL (8.7-10.4); Carbon Dioxide 26 mmol/L (20-31); Chloride 106 mmol/L (98-107); Glucose 92 mg/dL (74-106); Potassium 4.1 mmol/L (3.5-5.1); Sodium 140 mmol/L (136-145)
[2024-06-03 06:34] LABS: Bilirubin, Total 0.6 mg/dL (0.2-1.0); Total Protein 5.8 g/dL (5.7-8.2)
[2024-06-03 06:44] LABS: Aspartate Aminotransferase 11 U/L (13-40); Blood Urea Nitrogen 25 mg/dL (9-23)
[2024-06-03] MEDS: CHLORTHALIDONE 25 MG TAB PO SCH (08:13)
--- NOTE | 2024-06-03 12:14 | DVHPN2 ---
Subjective The patient is seen and examined at bedside. Complain of headache. No blurred vision Reviewed: Care Plan, H&P, Labs, Medications, Previous Orders, Radiology Changes from previous H/P or p: No Changes General: Per HPI Objective Vitals Vital Signs Date Time Temp Pulse Resp B/P (MAP) Pulse Ox O2 Delivery O2 Flow Rate FiO2 06/03/24 09:00 97.5 49 21 172/75 (107) 96 97.5 06/03/24 08:00 Room Air* 0 21 Intake/Output Intake and Output 06/03/24 07:00 Intake Total 1098 ml Output Total 700 ml Balance 398 ml Intake Oral 1098 ml Output Urine Total 700 ml # Voids 1 # Bowel Movements 1 General Appearance: Alert, Cooperative, No acute distress HEENT: Atraumatic, PERRLA, EOMI, Mucous membr. moist/pink Neck: Supple Lungs: Clear to auscultation, Normal air movement Cardiovascular: Regular rate, Normal S1, Normal S2, No murmurs, Gallops, Rubs Abdomen: Normal bowel sounds, Soft, No tenderness Extremities: Normal pulses Neuro: Cranial nerves 3-12 NL Psych/Mental Status: Mental status NL Medications Current Medications Medications Dose Ordered Sig/Frank Route Start Time Stop Time Status Last Admin Dose Admin Lorazepam 0.5 mg Q6HP PRN PO 06/01/24 10:45 06/01/24 21:04 0.5 MG Docusate Sodium 100 mg BIDPRN PRN PO 06/01/24 10:45 Acetaminophen 650 mg Q6HP PRN PO 06/01/24 10:45 Acetaminophen/ Hydrocodone Bitart 1 tab Q4HP PRN PO 06/01/24 10:45 06/01/24 21:04 1 TAB Ondansetron HCl 4 mg Q4HP PRN IV 06/01/24 10:45 Morphine Sulfate 2 mg Q4HPRN PRN IV 06/01/24 10:45 Lisinopril 10 mg DAILY PO 06/02/24 10:00 06/03/24 08:14 10 MG Chlorthalidone 25 mg DAILY@BREAKFAST PO 06/03/24 08:00 06/03/24 08:13 25 MG Hydralazine HCl 10 mg Q6HP PRN PO 06/02/24 13:30 Laboratory Results Laboratory Tests 06/02/24 05:27 06/03/24 05:21 Chemistry Test 06/03/24 05:21 Albumin 3.7 g/dL (3.2-4.8) Calcium Level 9.5 mg/dL (8.7-10.4) Total Protein 5.8 g/dL (5.7-8.2) LFT Test 06/03/24 05:21 Alanine Aminotransferase (ALT) 38 U/L (7-40) Alkaline Phosphatase 73 U/L (46-116) Aspartate Amino Transferase (AST) 11 U/L (13-40) L Total Bilirubin 0.6 mg/dL (0.2-1.0) Labs and/or images reviewed: Labs reviewed by me Assessment/Plan Assessment/Plan Hypertensive urgency Headache probable due to high blood pressure Leukocytosis Prediabetes GERD with history peptic ulcer disease Sinus bradycardia, asymptomatic. No AV nodule block. EF 55% per echo in 12 six Hyperlipidemia Benign prostate hypertrophy Plan: Continuing current management. Continuing with hypertensive medication. Blood pressure still remained at 170/ 100. Continuing with ACEI and chlorthalidone. Continuing to monitor. We will also continuing to monitor bradycardia. The patient denied any dizziness heart palpitation. Continuing Flomax. Continuing with statin. Tylenol p.r.n. for headache This medical document was created using an electronic medical record system with [employer] direct computerized dictation system. Although this document has been carefully reviewed, there may still be some phonetic and typographical errors. These areas are purely typographical due to imperfections of the software programs, and do not reflect any compromise in the patient's medical care. Plan discussed with: Patient Date of Service: Jun 03, 2024 Billing Provider: CLAUDIA BRISCOE MD Common Visit Codes: [id number] INP/OBS CARE(HIGH) CLAUDIA BRISCOE MD Jun 03, 2024 12:14
[2024-06-04] VITALS (7 sets, daily range): BP systolic 115–134; BP diastolic 62–73; PULSE 46–58; RESP 16–18; TEMP 97.7–98.6; O2SAT 91–98
[2024-06-04] MEDS: amLODIPine BESYLATE 5 MG TAB PO SCH (09:33)
--- NOTE | 2024-06-04 13:06 | DVHPN2 ---
Subjective The patient is seen and examined at bedside. The patient's blood pressure is improved however now he started feeling dizzy. Reviewed: Care Plan, H&P, Labs, Medications, Previous Orders, Radiology Changes from previous H/P or p: No Changes General: Per HPI Objective Vitals Vital Signs Date Time Temp Pulse Resp B/P (MAP) Pulse Ox O2 Delivery O2 Flow Rate FiO2 06/04/24 09:33 133/73 06/04/24 09:00 98.2 46 18 98 98.2 06/04/24 08:00 Room Air* 0 21 Intake/Output Intake and Output 06/04/24 07:00 Intake Total 1560 ml Balance 1560 ml Intake Oral 1560 ml # Voids 4 # Bowel Movements 1 General Appearance: Alert, Oriented X3, Cooperative, No acute distress HEENT: Atraumatic, PERRLA, EOMI, Mucous membr. moist/pink Neck: Supple Lungs: Clear to auscultation, Normal air movement Cardiovascular: Regular rate, Normal S1, Normal S2, No murmurs, Gallops, Rubs Abdomen: Normal bowel sounds, Soft, No tenderness, No hepatospenomegaly Neuro: Cranial nerves 3-12 NL Psych/Mental Status: Mental status NL Medications Current Medications Medications Dose Ordered Sig/Frank Route Start Time Stop Time Status Last Admin Dose Admin Lorazepam 0.5 mg Q6HP PRN PO 06/01/24 10:45 06/01/24 21:04 0.5 MG Docusate Sodium 100 mg BIDPRN PRN PO 06/01/24 10:45 Acetaminophen 650 mg Q6HP PRN PO 06/01/24 10:45 Acetaminophen/ Hydrocodone Bitart 1 tab Q4HP PRN PO 06/01/24 10:45 06/01/24 21:04 1 TAB Ondansetron HCl 4 mg Q4HP PRN IV 06/01/24 10:45 Morphine Sulfate 2 mg Q4HPRN PRN IV 06/01/24 10:45 Lisinopril 10 mg DAILY PO 06/02/24 10:00 06/04/24 09:32 10 MG Chlorthalidone 25 mg DAILY@BREAKFAST PO 06/03/24 08:00 06/04/24 08:47 25 MG Hydralazine HCl 10 mg Q6HP PRN PO 06/02/24 13:30 Amlodipine Besylate 10 mg DAILY PO 06/04/24 10:00 06/04/24 09:33 10 MG Laboratory Results Laboratory Tests 06/02/24 05:27 06/03/24 05:21 Labs and/or images reviewed: Labs reviewed by me Assessment/Plan Assessment/Plan Hypertensive urgency Headache probable due to high blood pressure Leukocytosis Prediabetes GERD with history peptic ulcer disease Sinus bradycardia. No AV nodule block. EF 55% per echo in 06/02 Hyperlipidemia Benign prostate hypertrophy Plan: Continuing current management. Continuing with hypertensive medication. Blood pressure still remained at 170/ 100. Continuing with ACEI and chlorthalidone. Continuing to monitor. We will also continuing to monitor bradycardia. The patient denied any heart palpitation. Continuing Flomax. Continuing with statin. Tylenol p.r.n. for headache. Encouraged the patient to be out of bed and ambulate. We will monitor dizziness for today. Discharge planning in a.m. if dizziness improved This medical document was created using an electronic medical record system with [employer] direct computerized dictation system. Although this document has been carefully reviewed, there may still be some phonetic and typographical errors. These areas are purely typographical due to imperfections of the software programs, and do not reflect any compromise in the patient's medical care. Plan discussed with: Patient Date of Service: Jun 04, 2024 Billing Provider: CLAUDIA BRISCOE MD Common Visit Codes: [id number] INP/OBS CARE(HIGH) CLAUDIA BRISCOE MD Jun 04, 2024 13:06
[2024-06-05 01:00] VITALS: BP 135/76; PULSE 53; RESP 18; TEMP 97.5; O2SAT 94
[2024-06-05 05:00] VITALS: BP 141/72; PULSE 50; RESP 18; TEMP 97.5; O2SAT 92
[2024-06-05 08:00] VITALS: PULSE 45
[2024-06-05 09:00] VITALS: BP 105/72; PULSE 48; RESP 17; TEMP 97.7; O2SAT 97
[2024-06-05] MEDS ORDERED: AML5T PO (09:00)
[2024-06-05] MEDS ORDERED: LISI10TA34 PO (09:00)
[2024-06-05] MEDS ORDERED: CHLO25TA2 PO (09:00)
--- NOTE | 2024-06-05 09:03 | DVHDS2 ---
Discharge Summary Date of Admission Jun 01, 2024 at 10:44 Date of Discharge: Jun 05, 2024 Labs/Diagnostic Data: Laboratory Results Test 06/03/24 05:21 06/02/24 05:27 06/01/24 05:15 Sodium Level 140 mmol/L (136-145) Potassium Level 4.1 mmol/L (3.5-5.1) Chloride Level 106 mmol/L (98-107) Carbon Dioxide Level 26 mmol/L (20-31) Anion Gap 8 (5-15) Blood Urea Nitrogen 25 mg/dL (9-23) Creatinine 0.98 mg/dL (0.700-1.30) Glomerular Filtration Rate Calc 80 mL/min (>90) BUN/Creatinine Ratio 25.5 (10.0-20.0) Serum Glucose 92 mg/dL (74-106) Calcium Level 9.5 mg/dL (8.7-10.4) Total Bilirubin 0.6 mg/dL (0.2-1.0) Aspartate Amino Transferase (AST) 11 U/L (13-40) Alanine Aminotransferase (ALT) 38 U/L (7-40) Alkaline Phosphatase 73 U/L (46-116) Total Protein 5.8 g/dL (5.7-8.2) Albumin 3.7 g/dL (3.2-4.8) White Blood Count 9.5 10^3/uL (4.4-10.8) Red Blood Count 4.96 10^6/uL (4.5-5.90) Hemoglobin 15.2 g/dL (13.5-17.5) Hematocrit 44.2 % (41.0-53.0) Mean Corpuscular Volume 89.1 fL (80.0-100.0) Mean Corpuscular Hemoglobin 30.6 pg (28.0-32.0) Mean Corpuscular Hemoglobin Concent 34.3 g/dL (32.0-36.0) Red Cell Distribution Width 14.8 % (11.8-14.3) Platelet Count 260 10^3/uL (140-450) Mean Platelet Volume 8.9 fL (6.9-10.8) Neutrophils (%) (Auto) 74.3 % (37.0-80.0) Lymphocytes (%) (Auto) 15.7 % (10.0-50.0) Monocytes (%) (Auto) 9.3 % (0.0-12.0) Eosinophils (%) (Auto) 0.7 % (0.0-7.0) Basophils (%) (Auto) 0.0 % (0.0-2.0) Neutrophils # (Auto) 7.0 10 ^3/uL (1.6-8.6) Lymphocytes # (Auto) 1.5 10 ^3/uL (0.4-5.4) Monocytes # (Auto) 0.9 10 ^3/uL (0-1.3) Eosinophils # (Auto) 0.1 10 ^3/uL (0-0.8) Basophils # (Auto) 0 10 ^3/uL (0-0.2) Nucleated Red Blood Cells 0.2 % Hemoglobin A1c 5.8 % A1C (<5.7) Magnesium Level 2.4 mg/dL (1.6-2.6) Triglycerides Level 123 mg/dL (< 150) Cholesterol Level 191 mg/dL (< 200) LDL Cholesterol 114 mg/dL (< 100) HDL Cholesterol 48 mg/dL (40-59) Thyroid Stimulating Hormone (TSH) 3.51 uIU/mL (0.55-4.78) Troponin I High Sensitivity 24 ng/L (</=54) B-Type Natriuretic Peptide 64.35 pg/mL (0-100) Other Laboratory Tests 06/03/24 05:21 06/02/24 05:27 Brief Hx & Hospital Course: 74-year-old male w PMHx hypertension, hyperlipidemia, BPH, and GERD who presents to the emergency room with chief complaint of headache. The patient reports that he was checking his blood pressure at home last night after a sudden onset of headache. He reports that his blood pressure at home was reading in the systolic 200s. The patient reports he was unable to get his blood pressure under control so he decided to come to the emergency room for further evaluation. Upon emergency room arrival, the patient's blood pressure was noted to reach as high as 197/67. denies changes in vsion, blurry vision, CP, abd pain, dizziness, falls. no SOB palpitaitons. He works out EOD if not daily. he has been healthy his whole life, has regular PCP but has never had this high BP in clinic visits. The patient reports he is very active at home. 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 He reports medical compliance to his lisinopril. on admit blood pressures in 200s over 100s at least. Tn neg, no end organ damage. cardiology consulted for sinus bradycardia, echo 06/02 with EF 55% and normal findings. Leukocytosis and neutrophilia noted, no sources of infection, likely due to hemoconcentration. renal u/s to ruleout renal artery stenosis is normal. BP controlled with PO anti-HTN agents. BP stablized, cardiology claered and plan made for discharge as below. diagnosis: HTN urgency, resolved; Sinus bradycardia without AV blocks, asymptmatic; Rule out symptomatic bradycardia; Rule out structural heart disease; Pre-diabetes, newly diagnosed; Hyperlipidemia; BPH; GERD possible; neutrophilia and leukopenia; resolved; discharge plan: - take chlorthalidone 25 mg daily, amlodipine 5mg daily, lisinopril 10mg daily. - protonix daily x 1 month for likley gerd symptoms. - followup with PCP to optimize BP. PCP to manage pre-diabetes, diet control counselled. - continue other home medications (BPH, HLD) Condition at Discharge: Fair Final Diagnosis/Problems List HTN urgency Discharge Disposition: Home Discharge Instruct/Medications Diet: Cardiac 2g Na,low cholest Activity: No Restrictions, As Tolerated Follow Up/Referral: PCP Medications: as below Discharge Statement: "Patient was advised to return to the ER or call 911 if any headaches, dizziness, shortness of breath, chest pain, abdominal pain, bleeding, fevers, or worsening of medical condition. Patient was counseled about treatment plan, medications, possible side effects, patientverbalized understanding. All questions were answered to the best of my ability. This discharge took greater then 30 minutes in planning, reviewing documentation, counseling the patient, and discussing with other team members." ASSESSMENT ASSESSMENT Assessment HTN urgency, resolved; Sinus bradycardia without AV blocks, asymptmatic; Rule out symptomatic bradycardia; Rule out structural heart disease; Pre-diabetes, newly diagnosed; Hyperlipidemia; BPH; GERD possible; neutrophilia and leukopenia; resolved; Date of Service: Jun 05, 2024 Billing Provider: MARGARITO CARD MD Common Visit Codes: [id number] DISCH DAY >30min MARGARITO CARD MD Jun 05, 2024 09:03
[2024-06-05] MEDS ORDERED: PANT40TA2 PO (21:37)
== END 2024-06-05 12:20 | disposition home or self-care (01) | DRG 305 ==
LOC: ER 04:35 → OVERFLOW 10:44 → TELE 10:53 → TELE-WESTW 18:45
PROVIDERS: ATTEND Student in an Organized Health Care Education/Training Program
DX: I16.0 Hypertensive urgency (principal); I50.32 Chronic diastolic (congestive) heart failure; E78.5 Hyperlipidemia, unspecified; N40.0 Benign prostatic hyperplasia without lower urinary tract symptoms; K21.9 Gastro-esophageal reflux disease without esophagitis; K27.9 Peptic ulcer, site unspecified, unspecified as acute or chronic, without hemorrhage or perforation; R00.1 Bradycardia, unspecified; M54.2 Cervicalgia; R73.03 Prediabetes; D70.9 Neutropenia, unspecified; Z88.6 Allergy status to analgesic agent; I11.0 Hypertensive heart disease with heart failure
CPT/HCPCS: 36415; 71045; 80048; 80053; 80061; 83036; 83735; 83880; 84443; 84484; 85025; 93005; 93306; 93975; 96365; G0378